=== PATIENT | male | born 1990 | race African-American/Black ===

== ENCOUNTER 2016-12-27 06:51 | Emergency (ER) | payer SELFPAY ==
[~2016-12-27] VITALS: Ht 182.9 cm; Wt 73.0 kg
[2016-12-27 06:53] VITALS: Ht 182.9 cm; Wt 73.0 kg
[2016-12-27] MEDS ORDERED: ONDANSETRON (ODT) 4 MG TAB ODT STA (07:07)
[2016-12-27] MEDS ORDERED: OSLT75C PO (07:17)
[2016-12-27] MEDS ORDERED: D-ME473S18 PO (07:17)
[2016-12-27] MEDS ORDERED: ONDA8TAB14 PO (07:17)
[2016-12-27] MEDS ORDERED: IBUP-1542 PO (07:17)
--- NOTE | 2016-12-27 07:20 | ERD ---
ER Documentation Chief Complaint Date/Time DATE: 12/27/16 TIME: 07:19 Chief Complaint Complains of cough x 2 days HPI This 26-year-old male presents with a cough, body aches low-grade fever and vomiting for 2 days. He did have a child with similar symptoms. He denies abdominal pain, shortness breath or chest pain, neck stiffness or rashes. ROS All systems reviewed and are negative except as per history of present illness. Medications Home Meds Active Scripts Ondansetron (Ondansetron Odt) 8 Mg Tab.rapdis, 8 MG PO Q6H Y for NAUSEA AND/OR VOMITING, #6 TAB Prov:CATHIE JAVIER MD 12/27/16 Ibuprofen* (Motrin*) 600 Mg Tab, 600 MG PO Q6H Y for PAIN AND OR ELEVATED TEMP, #20 TAB Prov:CATHIE JAVIER MD 12/27/16 Dextromethorphan Hb-Promethazine Hcl (Promethazine DM Syrup) 473 Ml Syrup, 5 ML PO Q6H Y for COUGH, #4 OZ Prov:CATHIE JAVIER MD 12/27/16 Oseltamivir Phosphate* (Tamiflu*) 75 Mg Capsule, 75 MG PO BID for 5 Days, CAP Prov:CATHIE JAVIER MD 12/27/16 Allergies Allergies: Coded Allergies: No Known Allergy (Unverified , 02/11/16) PMhx/Soc Medical and Surgical Hx: pt denies Medical Hx, pt denies Surgical Hx Hx Alcohol Use: No Hx Substance Use: No Hx Tobacco Use: No Physical Exam Vitals Vital Signs Date Time Temp Pulse Resp B/P Pulse Ox O2 Delivery O2 Flow Rate FiO2 12/27/16 06:53 100.5 103 20 149/73 98 Physical Exam Const: [] Alert, [id number]. Head: Atraumatic Eyes: Normal Conjunctiva ENT: Normal External Ears, Nose and Mouth. TMs and oropharynx normal Neck: Full range of motion..~ No meningismus. Resp: Clear to auscultation bilaterally. Dry cough. No rales, wheezing or retractions noted per Cardio: Regular rate and rhythm, no murmurs Abd: Soft, non tender, non distended. Normal bowel sounds Skin: No petechiae or rashes Back: No midline or flank tenderness Ext: No cyanosis, or edema Neur: Awake and alert Psych: Normal Mood and Affect Results 24 hrs Current Medications Medications (Trade) Dose Ordered Sig/Verenice Route PRN Reason Start Time Stop Time Status Last Admin Dose Admin Ondansetron HCl (Zofran Odt) 8 mg ONCE STAT ODT 12/27/16 07:07 2 07:08 DC Acetaminophen (Tylenol Tab) 650 mg ONCE ONCE PO 12/27/16 07:30 12/27/16 07:31 Procedures/MDM This patient presents with vomiting, cough and body aches and low-grade fever, likely viral illness or influenza. No evidence of hypoxemia, respiratory distress, abdominal pain, chest pain, meningismus. He will be treated with Tamiflu, promethazine, ibuprofen and Zofran instructions for rest and fluids. The patient was stable with no new complaints during the ER course. Clinically, there is no current evidence to suggest meningitis, sepsis, acute abdomen, pneumonia, acute coronary syndrome, pulmonary embolism, or any other emergent condition appearing to require further evaluation or hospitalization. The patient should certainly return for any new or worsening symptoms per the aftercare instructions. They should otherwise follow-up with her primary care doctor for reevaluation this week. Departure Diagnosis: Primary Impression: Fever Fever type: unspecified Qualified Code: R50.9 - Fever, unspecified fever cause Additional Impression: URI, acute Condition: Stable Patient Instructions: Fever Control (Adult), Influenza (Adult) Additional Instructions: Likely influenza should resolve in the next 2-3 days. Recheck for new or worsening symptoms with primary care doctor. CATHIE JAVIER MD Dec 27, 2016 07:20
[2016-12-27] MEDS ORDERED: ACETAMINOPHEN 325 MG TAB PO ONE (07:30)
== END 2016-12-27 07:30 | disposition home or self-care (01) ==
LOC: FTE 06:51
DX: R50.9 Fever, unspecified (principal); J06.9 Acute upper respiratory infection, unspecified; R11.10 Vomiting, unspecified
CPT/HCPCS: 99284

== ENCOUNTER 2017-01-23 06:43 | Emergency (ER) | payer BC ==
[~2017-01-23] VITALS: Wt 70.0 kg
[~2017-01-23 06:43] MED LIST: D-ME473S18 PO; IBUP-1542 PO; ONDA8TAB14 PO; OSLT75C PO
[2017-01-23 07:51] LABS: URINE BLOOD (Dip) POC Negative (NEGATIVE)
[2017-01-23] MEDS ORDERED: CEFTRIAXONE 250 MG INJ IM ONE (08:00)
[2017-01-23] MEDS ORDERED: AZITHROMYCIN 250 MG TAB PO ONE (08:00)
--- NOTE | 2017-01-23 09:33 | ERD ---
ER Documentation Chief Complaint Date/Time DATE: 01/23/17 TIME: 09:28 Chief Complaint pt needs std check no symptoms . no complaints at this time HPI 26-year-old male presented to ED requesting for STD check. He has history of chlamydia about 1 year ago. His girlfriend is here at the same time for vaginal discharge. Patient stated that he want to be treated if there is suspicion for STI. States that he has been with the current partner for more than 12 month. Patient denies having any additional partners in the past 12 month, however his girlfriend told me separately that he had a sexual encounter with another woman about 4-6 month ago. 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 Denies dysuria, urinary frequency or urgency. Denies urethral discharge. Denies penile or scrotal pain or inflammation. ROS All systems reviewed and are negative except as per history of present illness. Medications Home Meds Active Scripts Ondansetron (Ondansetron Odt) 8 Mg Tab.rapdis, 8 MG PO Q6H Y for NAUSEA AND/OR VOMITING, #6 TAB Prov:CATHIE JAVIER MD 12/27/16 Ibuprofen* (Motrin*) 600 Mg Tab, 600 MG PO Q6H Y for PAIN AND OR ELEVATED TEMP, #20 TAB Prov:CATHIE JAVIER MD 12/27/16 Dextromethorphan Hb-Promethazine Hcl (Promethazine DM Syrup) 473 Ml Syrup, 5 ML PO Q6H Y for COUGH, #4 OZ Prov:CATHIE JAVIER MD 12/27/16 Oseltamivir Phosphate* (Tamiflu*) 75 Mg Capsule, 75 MG PO BID for 5 Days, CAP Prov:CATHIE JAVIER MD 12/27/16 Allergies Allergies: Coded Allergies: No Known Allergy (Unverified , 02/11/16) PMhx/Soc Medical and Surgical Hx: pt denies Medical Hx, pt denies Surgical Hx Hx Alcohol Use: No Hx Substance Use: No Hx Tobacco Use: No Smoking Status: Never smoker Physical Exam Vitals Vital Signs Date Time Temp Pulse Resp B/P Pulse Ox O2 Delivery O2 Flow Rate FiO2 01/23/17 06:50 98.2 86 20 134/80 99 Physical Exam General impression: Well-developed, well-nourished. Alert, oriented, in no acute distress Head: Normocephalic, atraumatic. Eyes: PERRL, EOM normal. Conjunctiva not injected. Neck: Supple, nontender. No lymphadenopathy. No nuchal rigidity. Respiration: Normal respiratory effort. Lungs clear to auscultate bilaterally. No wheezes, rales or rhonchi. Cardiovascular: Regular rate and rhythm. No murmurs or extra heart sounds. Abdomen: Abdomen normal to inspection. Nontender. No masses or organomegaly. Bowel sounds normal. Neuro: Mental status normal, speech normal. [employer]CH[employer]ICIAN grossly intact. Skin: Normal turgor. No rash or lesions. Psych: Normal mood and affect. Results 24 hrs Laboratory Tests Test 01/23/17 07:55 Bedside Urine Blood Negative Bedside Urine Glucose (UA) Negative Bedside Urine Ketones (LAB) Negative Bedside Urine Leukocyte Esterase (L Negative Bedside Urine Nitrite (LAB) Negative Bedside Urine Protein (LAB) Negative Bedside Urine pH (LAB) 5.5 Current Medications Medications (Trade) Dose Ordered Sig/Verenice Route PRN Reason Start Time Stop Time Status Last Admin Dose Admin Ceftriaxone Sodium (Rocephin) 250 mg ONCE ONCE IM 01/23/17 08:00 01/23/17 08:01 DC 01/23/17 07:58 Azithromycin (Zithromax) 1,000 mg ONCE ONCE PO 01/23/17 08:00 01/23/17 08:01 DC 01/23/17 07:57 Procedures/MDM Urine dip is negative for UTI. Urine sent out for chlamydia and gonorrhea testing. Since patient had more than one sexual partner in the last 12 month, I feel he is at high risk for chlamydia or gonorrhea infection. Rocephin 250 mg IM and azithromycin 1 g p.o. given to the patient in the ED prophylactically. Same treatment also provided to his girlfriend at the same time. Patient appears well, stable for discharge and outpatient management. Medical decision making shared with patient and family. Education provided to patient and family. Patient and family expressed understanding of the plan. Medications on discharge: None. Follow-up: Primary care provider in 2-3 days or return to ED if worse. Departure Diagnosis: Primary Impression: Screening for STD (sexually transmitted disease) Condition: Good Patient Instructions: Understanding STDs Referrals: COMM[facility] YOU HAVE RECEIVED A MEDICAL SCREENING EXAM AND THE RESULTS INDICATE THAT YOU DO NOT HAVE A CONDITION THAT REQUIRES URGENT TREATMENT IN THE EMERGENCY DEPARTMENT. FURTHER EVALUATION AND TREATMENT OF YOUR CONDITION CAN WAIT UNTIL YOU ARE SEEN IN YOUR DOCTORS OFFICE WITHIN THE NEXT 1-2 DAYS. IT IS YOUR RESPONSIBILITY TO MAKE AN APPOINTMENT FOR FOLOW-UP CARE. IF YOU HAVE A PRIMARY DOCTOR --you should call your primary doctor and schedule an appointment IF YOU DO NOT HAVE A PRIMARY DOCTOR YOU CAN CALL OUR PHYSICIAN REFERRAL HOTLINE AT IF YOU CAN NOT AFFORD TO SEE A PHYSICIAN YOU CAN CHOSE FROM THE FOLLOWING [facility] [address] [facility]. [facility] [address] [facility] [facility] [address] [facility] [facility] [address] [facility]. [facility] [address] [facility]. [facility] [address] [facility] Hours: 8:00 am - 5:00 pm Additional Instructions: Call your primary care doctor TOMORROW for an appointment during the next 1 WEEK.Tell the alumni secretary that you were referred from this facility.See the doctor sooner or return here if your condition worsens before your appointment time. KATIE GALLO NP Jan 23, 2017 09:33
== END 2017-01-23 08:35 | disposition home or self-care (01) ==
LOC: FTE 06:43
DX: Z11.3 Encounter for screening for infections with a predominantly sexual mode of transmission (principal)
CPT/HCPCS: 81003; 87591; 96372; 99284; J0696